=== PATIENT | female | born 1985 | race Caucasian/White ===

== ENCOUNTER 2021-01-17 15:58 | Emergency (ER) | payer OTHER ==
[2021-01-17 16:27] LABS: #Basophils 0.1 thou/uL (0.0-0.2); #Eosinphils 0.1 thou/uL (0.0-0.7); #Lymphocytes 2.3 thou/uL (1.20-3.40); #Monocytes 0.5 thou/uL (0.11-0.59); #Neutrophils 2.5 thou/uL (1.40-6.50); %Basophils 1.7 % (0.0-1.0); %Eosinophils 1.8 % (0.0-10.0); %Lymphocytes 41.7 % (21.0-51.0); %Monocytes 9.7 % (0.0-10.0); Hemoglobin 13.4 g/dL (12.0-16.0); Mean Corpuscular HGB CONC 33.3 g/dL (32.0-36.0); Mean Corpuscular Hemoglobin 34.3 pg (27.0-31.0); Mean Platelet Volume 7.8 fL (7.4-10.4); Platelet Count 204 thou/uL (130-400); Red Blood Cell (RBC) Count 3.92 mill/uL (4.20-5.40); White Blood Cell (WBC) Count 5.5 thou/uL (4.8-10.8)
[2021-01-17 16:53] LABS: ALT (SGPT) 28 U/L (8-55); AST (SGOT) 26 U/L (5-34); Albumin 4.6 g/dL (3.5-5.0); Alkaline Phosphatase 52 U/L (40-110); Anion Gap 11 mmol/L (10-20); BUN (Urea Nitrogen) 12 mg/dL (7.0-18.7); Bilirubin, Total 0.5 mg/dL (0.2-1.2); Calc. Creatinine Clearance 0 mL/min (70-130); Calcium 9.9 mg/dL (7.8-10.44); Carbon Dioxide 31 mmol/L (22-29); Chloride 103 mmol/L (98-107); Globulin 2.7 g/dL (2.4-3.5); Glucose 100 mg/dL (70-105); Potassium 4.4 mmol/L (3.5-5.1); Protein, Total 7.3 g/dL (6.0-8.3); Sodium 141 mmol/L (136-145)
[2021-01-17 18:15] LABS: Bilirubin Negative (Negative); Blood, Urine Negative (Negative); Clarity Clear (Clear); Glucose, Urine (Dipstick) Normal (Negative); Ketone, Urine Negative (Negative); Leukocyte Negative Leu/uL (Negative); Nitrite Negative (Negative); Protein, Urine (Dipstick) Negative (Neg-Trace); Specific Gravity, Urine 1.009 (1.002-1.036); Urobilinogen Normal mg/dL (Less than 2)
== END 2021-01-17 18:05 ==
LOC: ERS 15:58
DX: R00.0 Tachycardia, unspecified (principal); R07.89 Other chest pain; I49.8 Other specified cardiac arrhythmias
CPT/HCPCS: 36415; 71045; 80053; 81003; 84484; 85025; 93005